=== PATIENT | female | born 1960 | race Caucasian/White ===

== ENCOUNTER 2016-07-20 05:31 | Day surgery (SDC) | payer OTHER ==
[~2016-07-20] VITALS: Ht 149.9 cm; Wt 79.8 kg
[~2016-07-20 05:31] MED LIST: CLARITIN,ALAVAR10 MG PO; ENZYMATIC DIGE1 EACH PO; GLUCOSAMINE-CH1 EAC2 PO; MULTI-DAY PLUS1 EAC1 PO; PROBIOTIC1 EAC1 PO; VITAMIN D35000 UNIT PO
[2016-07-20 06:42] VITALS: BP 145/85
[2016-07-20] MEDS ORDERED: MOTRIN800 MG PO (07:30)
[2016-07-20 09:20] VITALS: BP 144/85
[2016-07-20 09:52] VITALS: BP 169/84
== END 2016-07-20 09:54 | disposition home or self-care (01) ==
LOC: SDC 05:31
DX: N84.0 Polyp of corpus uteri (principal); N93.0 Postcoital and contact bleeding; Z82.49 Family history of ischemic heart disease and other diseases of the circulatory system; Z82.3 Family history of stroke; Z83.3 Family history of diabetes mellitus; Z83.49 Family history of other endocrine, nutritional and metabolic diseases; Z81.8 Family history of other mental and behavioral disorders
CPT/HCPCS: 88305; 93005; J0131; J1100; J1885; J2250; J2405; J2765; J3010